=== PATIENT | male | born 1975 | race Caucasian/White ===

== ENCOUNTER 2021-12-11 18:35 | Emergency (ER) | payer OTHER, SELFPAY ==
[2021-12-11 18:40] VITALS: BP 124/72; PULSE 103; RESP 16; TEMP 36.9; O2SAT 97
--- NOTE | 2021-12-11 18:40 | ED.SKABFB ---
HPI - Skin/Abscess/Foreign Bdy General Chief complaint: Skin/Abscess/Foreign Body Stated complaint: painful rash on butt around front Time Seen by Provider: 12/11/21 18:40 Source: patient and RN notes reviewed History of Present Illness HPI narrative: Patient is a 46-year-old male who presents the urgent care with complaints of a painful prickly burning rash to the right buttocks. Patient states that he noticed it on Friday and got much worse on Friday with increasing pain. Patient has not taken anything [id number] for his symptoms. Denies any history of shingles. No other acute complaints. No acute distress noted. Patient aware of the plan of care. Some parts of this dictation were generated by voice recognition software and may contain typographical and/or grammatical inaccuracies. Related Data Home Medications Medication Instructions Recorded Confirmed lisinopril 20 1 tablet PO DAILY 12/11/21 12/11/21 mg-hydrochlorothiazide 12.5 mg tablet Allergies Allergy/AdvReac Type Severity Reaction Status Date / Time codeine Allergy Unknown Hives Verified 12/11/21 18:45 Review of Systems Review of Systems: CONSTITUTIONAL: Denies fever, chills, or sweats. EYES: Denies visual changes, redness, or discharge. ENT: Denies rhinorrhea, congestion, sore throat, or otalgia. CARDIOVASCULAR: Denies chest pain, palpitations, or edema. RESPIRATORY: Denies cough or dyspnea. GASTROINTESTINAL: Denies abdominal pain, nausea, vomiting, or diarrhea. GENITOURINARY: Denies dysuria or hematuria. SKIN: Reports of a painful burning rash to the right buttocks MUSCULOSKELETAL: Denies back pain, joint pain, or myalgia. NEUROLOGIC: Denies headache, numbness, or weakness. All other systems reviewed are negative, except as documented in HPI. PMFSH Family History Family History Father Family history of mental disorder Mother Patient's mother is in good health Social History Social History Alcohol intake: current Comments At the time of my signature, I reviewed and agree with the nursing past medical, surgical, social, and family history. There is no relevant family history pertinent to the patient complaint. Exam Narrative: GENERAL: This is a well-nourished, well-developed patient, in no apparent distress. HEAD: normocephalic, atraumatic. EYES: PERRL. Sclera clear/white. Vision is grossly intact. EARS: External ears normal NOSE: External nose normal with no obvious nasal discharge, nares without redness, no rhinorrhea. THROAT: Mucous membranes moist NECK: Neck supple SKIN: 8 x 4cm vesicular/pustular herpes zoster noticed to the right buttocks extending down the right upper thigh with separate area measuring 6 x 6 cm NEURO: awake, alert, and oriented to person, place and time. There were no obvious focal neurologic abnormalities. EXTREMITIES: No clubbing, cyanosis, or edema. Course Course Level of Care: Express Care Visit Vital Signs Vital signs: Vital Signs Temperature 98.5 F 12/11/21 18:40 Pulse Rate 103 H 12/11/21 18:40 Respiratory Rate 16 12/11/21 18:40 Blood Pressure 124/72 12/11/21 18:40 Pulse Oximetry 97 12/11/21 18:40 Oxygen Delivery Room Air 12/11/21 18:40 Temperature 98.5 F 12/11/21 18:46 Pulse Rate 103 H 12/11/21 18:46 Respiratory Rate 16 12/11/21 18:46 Blood Pressure 124/72 12/11/21 18:46 Pulse Oximetry 97 12/11/21 18:46 Oxygen Delivery Room Air 12/11/21 18:46 Reviewed MDM - Skin/Abscess/Foreign Bdy MDM Narrative Medical decision making narrative: Advised patient to complete the course of antivirals as prescribed. May use Benadryl/vvhm-ptv-[id number] antihistamine as needed for itch and burning relief. Use Tylenol/ibuprofen as needed for pain. If you do not have resolution or you have new areas of the rash after the 7-day course of antiviral?obtain the 1 refill
[2021-12-11 18:46] VITALS: BP 124/72; PULSE 103; RESP 16; TEMP 36.9; O2SAT 97
== END 2021-12-11 19:04 | disposition home or self-care (01) ==
PROVIDERS: Emergency Provider Nurse Practitioner Family; PCP Hospitalist
DX: B02.9 Zoster without complications (principal); E78.00 Pure hypercholesterolemia, unspecified; I10 Essential (primary) hypertension; G47.30 Sleep apnea, unspecified; K21.9 Gastro-esophageal reflux disease without esophagitis; K76.0 Fatty (change of) liver, not elsewhere classified
CPT/HCPCS: 99213; G0463

== ENCOUNTER 2022-10-19 10:40 | Emergency (ER) | payer OTHER, SELFPAY ==
[2022-10-19 10:45] VITALS: BP 124/78; PULSE 96; RESP 20; TEMP 36.7; O2SAT 97
--- NOTE | 2022-10-19 11:22 | ED.URI ---
HPI - URI/Sore Throat General Chief Complaint: Upper Respiratory Infection Stated Complaint: Cough History of Present Illness HPI Narrative: Patient presents with a 6 week history of sinus congestion nasal congestion and cough. No shortness of breath no chest pain no fever Related Data Home Medications Medication Instructions Recorded Confirmed lisinopril 20 1 tablet PO DAILY 12/11/21 10/19/22 mg-hydrochlorothiazide 12.5 mg tablet desvenlafaxine succinate 100 mg 100 mg PO DAILY 10/19/22 10/19/22 tablet,extended release 24 hr pantoprazole 40 mg tablet,delayed 40 mg PO DAILY 10/19/22 10/19/22 release Allergies Allergy/AdvReac Type Severity Reaction Status Date / Time codeine Allergy Unknown Hives Verified 10/19/22 10:55 Review of Systems Review of Systems: CONSTITUTIONAL: Denies chills, or sweats. Reports fever and generalized body aches EYES: Denies visual changes, redness, or discharge. ENT: Denies otalgia. Reports nasal congestion runny nose and sore throat CARDIOVASCULAR: Denies chest pain, palpitations, or edema. RESPIRATORY: Denies dyspnea. Reports occasional cough GASTROINTESTINAL: Denies abdominal pain, nausea, vomiting, or diarrhea. GENITOURINARY: Denies dysuria or hematuria. SKIN: Denies rash or itching. MUSCULOSKELETAL: Denies back pain, joint pain, or myalgia. Reports generalized body aches NEUROLOGIC: Denies headache, numbness, or weakness. PSYCHIATRIC: Denies anxiety or depression. [facility] Family History Family History Father Family history of mental disorder Mother Patient's mother is in good health Social History Social History Alcohol intake: current Comments At time of signature, agree with nursing past medical, surgical, social and family history. There is no relevant family history pertinent to the presenting complaint Exam Narrative: The patient is a well-developed, well-nourished in no acute distress. SKIN: Skin is warm and dry without erythema, swelling or exudate. There is good turgor. No tenting. HEAD: Atraumatic. Normocephalic. No temporal or scalp tenderness. EYES: Moist and bright. Sclera and conjunctivae normal. No discharge. PERRLA. Extraocular motions intact. Gross visual acuity intact. EARS: Pinna is normal shape and contour. Clear external auditory canals. TM pearly sharma with good cone of light, no erythema or suppuration. Bilateral cerumen noted no gross hearing deficit. NOSE: pink, moist mucosa with good air movement. Clear rhinorrhea without nasal flaring. Septum midline. Mouth: moist mucous membranes. THROAT; mild erythema noted to posterior oropharynx with moderate postnasal drainage. Without exudate or ulceration.. Uvula midline. Normal movement of soft palate. NECK: Supple and nontender with full range of motion without discomfort. No meningeal signs. LUNGS: Equal and bilateral breath sounds without wheezes, rales or rhonchi. CHEST: The chest wall is without retractions or use of accessory muscles. HEART: Has a regular rate and rhythm without murmur, gallops, click or rub. ABDOMEN: Soft, nontender with positive active bowel sounds. No rebound tenderness. EXTREMITIES: Without cyanosis, clubbing or edema. Equal 2+ distal pulses and 2 second capillary refill noted. NEUROLOGIC: alert, active, . The patient moves all extremities with normal muscle strength. Normal muscle tone is noted. Normal coordination is noted. NO focal neurological findings noted. Course Course Level of Care: Express Care Visit Vital Signs Vital signs: Vital Signs Temperature 36.7 C 10/19/22 10:45 Pulse Rate 96 10/19/22 10:45 Respiratory Rate 20 10/19/22 10:45 Blood Pressure 124/78 10/19/22 10:45 Pulse Oximetry 97 10/19/22 10:45 Oxygen Delivery Room Air 10/19/22 10:45 Temperature 36.7 C 10/19/22 10:45 Pulse Rate 96 10/19/22 10:45 Respi
== END 2022-10-19 11:27 | disposition home or self-care (01) ==
PROVIDERS: Emergency Provider Nurse Practitioner Family; PCP Hospitalist
DX: J01.00 Acute maxillary sinusitis, unspecified (principal); E78.00 Pure hypercholesterolemia, unspecified; I10 Essential (primary) hypertension; G47.30 Sleep apnea, unspecified; K21.9 Gastro-esophageal reflux disease without esophagitis; K76.0 Fatty (change of) liver, not elsewhere classified; L40.9 Psoriasis, unspecified
CPT/HCPCS: 99213; G0463

== ENCOUNTER 2024-02-10 12:42 | Emergency (ER) | payer OTHER, SELFPAY ==
--- NOTE | ~2024-02-10 | XR_ITS ---
XR chest 2V Ordering provider: Dania Dowell APRN History: 48 years Male with . cough; mild crackles right mid lung . Comparison: None. FINDINGS: MEDIASTINUM: The cardiac silhouette is not enlarged. LUNGS: No infiltrates, effusions or pneumothorax. OTHER: No free air under the diaphragm. IMPRESSION: No acute cardiopulmonary pathology. Reviewed, dictated and finalized at location A. [facility]
[2024-02-10 12:53] VITALS: BP 148/83; PULSE 79; RESP 20; TEMP 37.2; O2SAT 100
--- NOTE | 2024-02-10 12:54 | ED.URI ---
HPI - URI/Sore Throat General Chief Complaint: Upper Respiratory Infection Stated Complaint: Congestion Time Seen by Provider: 02/10/24 12:54 Source: patient, RN notes reviewed and old records reviewed Mode of arrival: ambulatory Limitations: no limitations History of Present Illness HPI Narrative: 48-year-old male to Express Care with complaint of sore throat, headache, cough, right ear pain, postnasal drainage since Friday. Patient attempts treating symptoms at home with [id number] medications with little relief. Patient denies fever, shortness of breath, difficulty swallowing, pertinent medical history. Patient able to tolerate fluids by mouth. Patient resting comfortably in exam room in no acute distress. Respirations even and nonlabored. Patient able to speak in complete sentences without difficulty. Related Data Home Medications Medication Instructions Recorded Confirmed lisinopril 20 1 tablet PO DAILY 12/11/21 02/10/24 mg-hydrochlorothiazide 12.5 mg tablet desvenlafaxine succinate 100 mg 100 mg PO DAILY 10/19/22 02/10/24 tablet,extended release 24 hr pantoprazole 40 mg tablet,delayed 40 mg PO DAILY 10/19/22 02/10/24 release buspirone 10 mg tablet 10 mg PO BID 02/10/24 02/10/24 levothyroxine 50 mcg tablet 50 mcg PO DAILY 02/10/24 02/10/24 tapinarof 1 % topical cream (Vtama) 1 applic topical BID 02/10/24 02/10/24 trazodone 150 mg tablet 150 mg PO QHS 02/10/24 02/10/24 Allergies Allergy/AdvReac Type Severity Reaction Status Date / Time codeine Allergy Unknown Hives Verified 02/10/24 12:53 Review of Systems Review of Systems: All systems reviewed & are unremarkable except as noted in HPI and below Constitutional: Constitutional: Reports as per HPI and Reports headache(s) Eyes: Eyes: Reports no additional eye complaints ENT: Reports as per HPI, Reports otalgia ( Right), Reports post nasal drip and Reports sore throat Cardiovascular: Cardiovascular: Reports no additional cardiovascular complaints, Denies chest pain and Denies dyspnea Respiratory: Respiratory: Reports no additional respiratory complaints, Denies cough and Denies dyspnea Musculoskeletal: Musculoskeletal: Reports no additional musculoskeletal complaints Neurologic: Reports system reviewed and no additional complaints, except as documented Psychiatric: Psychiatric: Reports no additional psychiatric complaints PMFSH Family History Family History Father Family history of mental disorder Mother Patient's mother is in good health Social History Social History Alcohol intake: current Comments At the time of my signature, I reviewed and agree with the nursing past medical, surgical, social, and family history. There is no relevant family history pertinent to the patient complaint. Exam Const: General: cooperative, no acute distress, alert, tired appearing and well nourished Nutritional Appearance: well nourished Orientation/consciousness: patient oriented x3 Limitations: no limitations HENMT: Head: normal to inspection Ears: external ears normal and TM abnormal bulging on the right, erythematous on the right and with fluid behind the TM on the right Face/Nose/Sinus: Normal external nose present, Normal nares present, normal facial exam, No erythema and No edema Face and sinus: normal facial exam, no erythema and no edema Mouth: Yes Normal oral and palatal mucosa present Throat: posterior oropharynx abnormal erythema and postnasal drainage Eyes: General: appearance normal, both eyes and all related structures Neck: Neck: normal visual inspection, full ROM and no meningeal signs Lymphatic: no lymphadenopathy noted and no lymphedema noted Chest: Chest palpation & inspection: normal inspection of the chest Resp: Effort & Inspection: normal respiratory effort and able to speak in complete sentences Auscultation: clear to auscultation bilaterally and diminished lung sounds bilateral in the lower lung ahuja Cardio: Jugular venous distension: no JVD Rate: regular rate Rhythm: regular rhythm Back/Spine/Pelvis: Cervical Spine: cervical ROM normal Skin: General skin exam: normal color, no rashes or lesions noted and turgor normal Neuro: General: patient oriented x3, gait normal, moves all extremities and no meningeal signs Speech: normal speech Gait exam (Neuro): Normal gait present Extrem: General: normal to inspection, full ROM and capillary refill normal Psych: Appearance: grossly normal and well kempt Course Course Emergency Course: Some parts of this dictation were generated by voice recognition software and may contain typographical and/or grammatical inaccuracies. Level of Care: Express Care Visit Vital Signs Vital signs: Vital Signs Temperature 37.2 C 02/10/24 12:53 Pulse Rate 79 02/10/24 12:53 Respiratory Rate 20 02/10/24 12:53 Blood Pressure 148/83 H 02/10/24 12:53 Pulse Oximetry 100 02/10/24 12:53 Oxygen Delivery Room Air 02/10/24 12:53 Temperature 37.2 C 02/10/24 12:53 Pulse Rate 79 02/10/24 12:53 Respiratory Rate 20 02/10/24 12:53 Blood Pressure 148/83 H 02/10/24 12:53 Pulse Oximetry 100 02/10/24 12:53 Oxygen Delivery Room Air 02/10/24 12:53 reviewed MDM - URI/Sore Throat MDM Narrative Medical decision making narrative: 48-year-old male to Express Care with complaint of sore throat, headache, cough, right ear pain, postnasal drainage since Friday. Patient attempts treating symptoms at home with [id number]-[id number] medications with little relief. Patient denies fever, shortness of breath, difficulty swallowing, pertinent medical history. Patient able to tolerate fluids by mouth. Patient resting comfortably in exam room in no acute distress. Respirations even and nonlabored. Patient able to speak in complete sentences without difficulty. on exam, right TM erythematous, bulging with fluid, loss of landmarks. Posterior oropharynx erythematous with postnasal drainage. On auscultation, bilateral lower diminished lung sounds. Chest x-ray negative in clinic. Line Patient is sitting comfortably in exam room nontoxic in appearance. Patient appropriate for outpatient treatment and follow-up. Discharge instructions reviewed with patient, as well as provided in writing per nursing staff. The instructions also include specific and strict return/GO TO THE ER as well as f/u information. All questions have been answered, and the patient deny any further questions with discharge and discharge plan. Some parts of this dictation were generated by voice recognition software and may contain typographical and/or grammatical inaccuracies. Differential Diagnosis Differential diagnosis: Likely upper respiratory infection, croup, otitis media, sinusitis, viral infection, bronchitis, influenza and pharyngitis Imaging Data Radiologist's impression: XR chest 2V Ordering provider: Dania Dowell APRN History: 48 years Male with . cough; mild crackles right mid lung . Comparison: None. FINDINGS: MEDIASTINUM: The cardiac silhouette is not enlarged. LUNGS: No infiltrates, effusions or pneumothorax. OTHER: No free air under the diaphragm. IMPRESSION: No acute cardiopulmonary pathology. Discharge Plan Discharge Clinical Impression: Acute right otitis media Patient Disposition: Home, Self-Care Condition: Stable Instructions: Ear Infection (ED) Additional Instructions: -Alternate Tylenol and Motrin per package directions for fever or pain. -Antihistamine medication such as Benadryl at night and Zyrtec/Claritin/Radha during the day can help improve symptoms. -Use Flonase twice a day for 5 days then daily to help reduce the inflammation and dry up your sinuses. -You can also use Sudafed or Mucinex. Be sure to drink plenty of water with these medications at least 8 ounces with every dose and it is important to drink 8 to 10 glasses of water per day. Water is a natural decongestant -Eat and drink things that are easy to swallow, like tea or soup, or popsicles. -Oral rinses such as: Salt water gargles and/or may use topical anesthetic (eg. Chloraseptic spray) or lozenges to relieve dryness or throat pain). -Frequent hand washing or hand internal control consultant is one of the best ways to prevent spread of infection. -Using a vaporizer or humidifier at night will also help thin secretions and help with coughing up phlegm. -Follow up with primary care provider in 2-3 days if condition is not improving; or seek ER visit if you have trouble breathing, cannot drink enough fluids, have muffled voice, difficulty opening your mouth, or severe swelling. Prescriptions: New amoxicillin 875 mg tablet 875 mg PO Q12H Qty: 20 0RF No Action lisinopril-hydrochlorothiazide 20-12.5 mg tablet 1 tablet PO DAILY Rx Instructions: TAKE 1 TABLET BY MOUTH EVERY DAY buspirone 10 mg tablet 10 mg PO BID levothyroxine 50 mcg tablet 50 mcg PO DAILY trazodone 150 mg tablet 150 mg PO QHS Vtama 1 % cream 1 applic TOPICAL BID pantoprazole 40 mg tablet,delayed release (DR/EC) 40 mg PO DAILY desvenlafaxine succinate 100 mg tablet extended release 24 hr 100 mg PO DAILY rosuvastatin [Crestor] 5 mg tablet 5 mg PO DAILY Qty: 90 2RF Follow-up/Referrals: Antonino,MD Jimbo [Primary Care Provider] - Stand Alone Forms: Work/School Release IP
== END 2024-02-10 14:15 | disposition home or self-care (01) ==
PROVIDERS: Emergency Provider Nurse Practitioner Family; PCP Hospitalist
DX: H66.91 Otitis media, unspecified, right ear (principal)
CPT/HCPCS: 71046; 99213; G0463

== ENCOUNTER 2025-02-02 07:54 | Outpatient (CLI) | payer OTHER, SELFPAY ==
[2025-02-02 18:58] LABS: Hematocrit 45.3 % (42.0-52.0); Hemoglobin 15.1 g/dL (14.0-18.0); Mean Corpuscular HGB Conc 33.3 g/dl (32-36); Mean Corpuscular Hemoglobin 31.5 pg (26-34); Mean Corpuscular Volume 94.6 fl (80-100); Platelet Count Result 219 k/mm3 (150-375); Red Blood Count 4.79 M/mm3 (4.6-6.20); White Blood Count 4.5 K/mm3 (4.5-10.0)
[2025-02-02 19:05] LABS: Alanine Aminotransferase 67 U/L (6-50); Albumin Level 4.8 g/dL (3.5-5.1); Alkaline Phosphatase 68 U/L (38-126); Anion Gap 10 mmol/L (4-12); Aspartate Amino Transferase 83 U/L (17-59); Bilirubin,Total 0.7 mg/dL (0.2-1.3); Blood Urea Nitrogen 8 mg/dL (9-20); Calcium 9.3 mg/dL (8.4-10.2); Carbon Dioxide 29 mmol/L (22-30); Chloride 98 mmol/L (98-107); Cholesterol 161 mg/dL (0-200); Estimated Glomerular Filt Rate > 60; Glucose 104 mg/dL (65-110); HDL Direct 56 mg/dL; Potassium 3.8 mmol/L (3.4-5.0); Sodium 137 mmol/L (137-145); Total Protein 8.8 g/dL (6.3-8.2); Triglycerides 188 mg/dL (<150)
[2025-02-02 19:41] LABS: Prostate Specific Antigen 0.8 ng/mL (< OR = 4.0); Thyroid Stimulating Hormone 1.300 uIU/mL (0.465-4.680)
[2025-02-05 20:08] LABS: Free Testosterone (Direct) 6.2 pg/mL (6.8-21.5)
== END 2025-02-02 07:55 | disposition home or self-care (01) ==
PROVIDERS: PCP Nurse Practitioner Adult Health; Visit Provider Nurse Practitioner Adult Health
DX: Z12.5 Encounter for screening for malignant neoplasm of prostate (principal); I10 Essential (primary) hypertension; R79.89 Other specified abnormal findings of blood chemistry; E07.9 Disorder of thyroid, unspecified; E78.5 Hyperlipidemia, unspecified
CPT/HCPCS: 36415; 80053; 80061; 84153; 84402; 84403; 84443; 85027; G0103